=== PATIENT | male | born 1980 | race Caucasian/White ===

== ENCOUNTER 2023-12-06 22:35 | Emergency (ER) | payer OTHER, SELFPAY ==
[2023-12-06 23:28] LABS: % Basophils 0.3 % (0-2); % Eosinophils 0.9 % (0-6); % Immature Granulocytes 0.5 % (0-0.5); % Monocytes 12.6 % (1.7-9.3); % Neutrophils 74.7 % (42.2-75.2); Absolute Eosinophils 0.1 10^3/uL (0-0.7); Absolute Lymphocytes 0.7 10^3/uL (1.2-3.4); Absolute Monocytes 0.8 10^3/uL (0.1-0.6); Absolute Neutrophils 4.9 10^3/uL (1.4-6.5); Hematocrit 36.5 % (39.0-52.0); Hemoglobin 13.1 g/dL (13.0-18.0); Mean Corp Hgb Conc. 35.9 g/dL (33.0-37.0); Mean Corpuscular Hgb 34.1 pg (27.0-31.0); Mean Corpuscular Volume 95.1 fL (80.0-94.0); Mean Platelet Volume 9.3 fL (7.4-10.4); Nucleated Red Blood Cells % 0 % (-); Platelet Count 155 10^3/uL (130-400); Red Blood Cell Count 3.84 10^6/uL (4.70-6.10); White Blood Cell Count 6.5 10^3/uL (4.8-10.8)
[2023-12-06 23:50] LABS: ALT (SGPT) 27 U/L (0-50); AST (SGOT) 49 U/L (17-59); Albumin 3.9 g/dl (3.5-5.0); Alkaline Phosphatase 147 U/L (38-126); Blood Urea Nitrogen 8 mg/dl (9-20); Calcium 9.4 mg/dl (8.4-10.2); Carbon Dioxide 26 mmol/L (22-30); Chloride 104 mmol/L (98-107); Glucose 102 mg/dl (70-99); Potassium 3.3 mmol/L (3.5-5.1); Sodium 137 mmol/L (135-145); Total Bilirubin 1.2 mg/dl (0.2-1.3); Total Protein 6.4 g/dl (6.3-8.2); eGFR > 60.00
[2023-12-06 23:51] LABS: NT-proBNP 242 pg/ml; Troponin I < 0.012 ng/ml
[2023-12-07 00:30] VITALS: BP 141/84
[2023-12-07 00:34] VITALS: BMI 30.4
--- NOTE | 2023-12-07 02:11 | ED.GENMED ---
History of Present Illness
General
Chief Complaint: Back Pain
Source: patient and family
Time Seen by Provider: 12/06/23 23:59
History of Present Illness
History of Present Illness:
This a pleasant 43-year-old male that presents with bilateral upper back pain. This is present for the last few days. Patient has a history of colorectal cancer diagnosed 2 years ago. He is currently at stage IV being treated at [facility]
[place]. Patient states that he has been having intermittent chest pain. He did report a elevation in his blood pressure. Patient has known metastases to his lungs.
Vital signs are stable. Patient not hypoxic
Nursing note reviewed. I agree with nursing documentation up to this point in time.
Home Meds and allergies reviewed.
NUMBER AND COMPLEXITY OF PROBLEMS ADDRESSED AT THE ENCOUNTER
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
� Acute Exacerbation and/or Progression of Chronic Illness: Likely metastatic disease
� Differential Diagnosis includes: Pulmonary embolus, pulmonary infarct, worsening metastases, AAA, thoracic aneurysm
AMOUNT AND/OR COMPLEXITY OF DATA TO BE REVIEWED AND ANALYZED
I performed an independent evaluation of the following and my interpretation is:
EKG: Normal sinus rhythm rate of 97 with normal intervals, left axis deviation. Nonspecific ST and T wave changes noted.
CT angiogram chest
IMPRESSION:
-Technically adequate study -- no evidence of a PE, aortic dissection, or an aortic aneurysm
-No pulmonary consolidation or pleural effusions; dependent areas of probable atelectasis; mild, patchy areas of air trapping/mosaic perfusion
-Mild cardiomegaly
-Several pulmonary nodules measuring up to 7-8 mm such as in the right lower lobe (se 404, im 144) and left lower lobe (im 128)
-Numerous heterogeneously enhancing liver lesions, likely metastases
-Mediport in the right chest wall; mild splenomegaly
Results faxed at 01:37 AM ET. Can call (ext [phone]) if questions.
CT:
X-rays: Chest x-ray negative
Ultrasound:
Laboratory Studies: Troponin is negative. Chest pain began greater than 12 hours ago.
Other:
Review of other/old records: No previous records
Clinical information was obtained by an independent historian:
Prescriptions/Medications Considered but not given:
Further testing considered but not performed:
RISK OF COMPLICATIONS AND/OR MORBIDITY OR MORTALITY OF PATIENT MANAGEMENT
Social determinants of health affecting care: Good Social Support
Discussion with other providers:
Escalation of care including admission/observation vs risk of discharge considered: I spoke with patient regarding his CAT scan and laboratory values. At this point he states he feels well enough to go home. He will follow-up
with his doctors at [facility]. He has no further questions.
CRITICAL CARE NOTE:
Total Time (exclusive of procedures):
Update:
Review of Systems
Review of Systems
Allergies reviewed?: Yes
Other source history: family
All Other Systems: ROS reviewed and negative except as documented in HPI and ROS
Constitutional: Reports no symptoms
EENT: Reports no symptoms
Respiratory: Reports no symptoms
Cardiac: Reports chest pain
ABD/GI: Reports other (Thoracic back pain)
: Reports no symptoms
Musculoskeletal: Reports no symptoms
Skin: Reports no symptoms
Neurological: Reports no symptoms
Endocrine: Reports no symptoms
Hematologic/Lymphatic: Reports no symptoms
Psychiatric: Reports no symptoms
Phy Exam
General Physical Exam
General Presentation: well appearing and mild distress
General age: appears older than age
General Skin: warm and dry
General Habitus: debilitated
General Mental: alert
Cardiovascular Exam
Cardiovascular Exam: regular rate/rhythm and no edema
Pulmonary Exam
Pulmonary Exam: lungs clear, no respiratory distress, no stridor, no cough and other (Port in the anterior chest wall)
Gastrointestinal Exam
Gastrointestinal Exam: normal bowel sounds, non tender and soft
Course
Orders/Labs/Results
Orders:
Orders
12/06/23 22:47
Electrocardiogram (*1) Urgent
Reason for Study: Other
Other Reason for Exam: Respiratory Distress
Cardiac Monitoring- Treatment ONCE
EKG- Treatment ONCE
IV Insert/Care/Rem.- Treatment PRN
CR Chest - 2 Views Urgent
Comment:
Reason For Exam: respiratory distress
O2 Therapy [RESP] Urgent
Titrate/Wean O2 to maintain O2 sat greater than (%): 93
Special Instructions: TO MAINTAIN CONTINUOUS O2 SATS >/= 93%
Pulse Ox/cont/shift [RESP] Urgent
Quantity: 1
Special Instructions: continuous pulse ox
12/06/23 23:12
Complete Blood Count/With Diff Urgent
Comprehensive Metabolic Panel Urgent
NT-proBNP Urgent
Troponin I Urgent
12/07/23 00:47
CT Chest Pe Study Urgent
Comment:
Reason For Exam: colon ca with lung metsm now right chst/bone pain
12/07/23 02:21
Urinalysis Reflex To Culture Urgent
Date Specimen was Collected: 12/07/23
Time Specimen was Collected: 02:19
Abnormal Lab Results
12/06/23
23:12
RBC 3.84 L 10^6/uL
(4.70-6.10)
Hct 36.5 L %
(39.0-52.0)
MCV 95.1 H fL
(80.0-94.0)
MCH 34.1 H pg
(27.0-31.0)
RDW 15.0 H %
(11.5-14.5)
Absolute Lymphs (auto) 0.7 L 10^3/uL
(1.2-3.4)
Absolute Monos (auto) 0.8 H 10^3/uL
(0.1-0.6)
Lymphocytes % 11.0 L %
(20.5-51.1)
Monocytes % 12.6 H %
(1.7-9.3)
Potassium 3.3 L mmol/L
(3.5-5.1)
BUN 8 L mg/dl
(9-20)
Glucose 102 H mg/dl
(70-99)
Alkaline Phosphatase 147 H U/L
(38-126)
12/06/23 23:12
12/06/23 23:12
Vital Signs
Initial and Last Documented VS:
Initial Vital Signs
Temp Pulse Resp Pulse Ox
98.0 F 128 24 96
12/06/23 22:39 12/06/23 22:39 12/06/23 22:39 12/06/23 22:39
Last Documented Vital Signs
Temp Pulse Resp BP Pulse Ox
98.0 F 81 15 141/84 94
12/06/23 22:39 12/07/23 02:00 12/07/23 02:00 12/07/23 00:30 12/07/23 02:00
*Critical Care Note
Total Time (30-74mins, 75-104mins- exclusive of procedures): Not Applicable
ED Attending Note
-
Portions of this chart may have been created with voice recognition software.� Occasional wrong word or��sound alike� substitutions may have occurred due to the inherent limitations of voice recognition software.
Discharge Plan
Departure
Patient Disposition: Home (Routine Discharge)
Date of Disposition: 12/07/23
Time of Disposition: 02:18
Patient with high blood pressure during this ER visit?: Yes
Condition: Good
Discharge Problem:
Back pain, Multiple pulmonary nodules
Instructions: Upper Back Pain (DC), BLOOD PRESSURE
Referrals:
Latanya Cunha PA-C [Family Provider] -
Activity Restrictions/Additional Instructions:
Please follow up with [facility] regarding the pulmonary nodules found on CT scan.
It was a pleasure meeting you and taking part in your care. We hope for your continued healing and wellness.
Please read discharge instructions in their entirety. However, they are for general education and may not describe your exact diagnosis at discharge. Information on your ER visit and medical conditions were discussed with you along with appropriate
follow up information...
If indicated, please take your medications as instructed and indicated on discharge paperwork.
Please schedule a follow up appointment as directed. Call to schedule an appointment
Please return to the emergency department with ANY change in, persisting, or worsening of symptoms. If any of your symptoms do not improve, or persist, or become more severe within 6-12 hours, please return to the emergency department for further
care.
Please return to the emergency department if you develop a headache, neck pain/stiffness, fever greater than 100.4F, chest pain, shortness of breath, persistent nausea, vomiting, slurred speech, difficulty walking, numbness/tingling, weakness, signs
of infection or any other symptoms that are worrisome to you.
If you have any questions or concerns please do not hesitate to call the Hospital at or E-mail me directly at [email or web address]
Interventions
Interventions:
*Risk Screen - Suicide Last Done: 12/06/23 22:39
*General Assessment Last Done: 12/06/23 22:39
*Neglect/Abuse Screening Last Done: 12/06/23 22:39
ED- Fall Risk Assessment Last Done: 12/06/23 22:39
*ED COVID-19 Vaccine History Last Done: 12/06/23 22:39
*Nursing Disposition Last Done: 12/07/23 03:09
ED-Musculoskeletal Assessment Last Done: 12/07/23 00:35
Discharge Date and Time
Discharge Date/Time: 12/07/23 03:11
Print Language: ARMENIAN
[2023-12-07 02:30] LABS: Urine Albumin Negative (Neg - Trace); Urine Bilirubin Negative (Negative); Urine Character Clear (Clear); Urine Color Yellow; Urine Glucose Negative (Negative); Urine Ketone Negative (Negative); Urine Leukocyte Negative (Negative); Urine Nitrite Negative (Negative); Urine Occult Blood Negative (Negative); Urine Urobilinogen Negative (Neg - 1+); Urine pH 6.5 (5.0-9.0)
--- NOTE | 2023-12-07 03:11 | VATNOTE ---
Patient's port was flushed with heparin and deaccessed per protocol as patient is discharged.
== END 2023-12-07 03:11 | disposition home or self-care (01) ==
LOC: EMR 22:35
PROVIDERS: Emergency Medicine; EMERGENCY PHYSICIAN Student in an Organized Health Care Education/Training Program; FAMILY PHYSICIAN Physician Assistant
DX: M54.6 Pain in thoracic spine (principal); R07.89 Other chest pain; R03.0 Elevated blood-pressure reading, without diagnosis of hypertension; C19 Malignant neoplasm of rectosigmoid junction; C78.00 Secondary malignant neoplasm of unspecified lung; I51.7 Cardiomegaly; K76.9 Liver disease, unspecified; R16.1 Splenomegaly, not elsewhere classified; M89.8X9 Other specified disorders of bone, unspecified site; R91.8 Other nonspecific abnormal finding of lung field
CPT/HCPCS: 99285; 71046; 71275; 80053; 81003; 83880; 84484; 85025; 93005; Q9967

== ENCOUNTER 2023-12-28 09:59 | Emergency (ER) | payer SELFPAY ==
[2023-12-28 10:04] VITALS: BP 149/105
--- NOTE | 2023-12-28 10:15 | ED.GENMED ---
History of Present Illness
General
Chief Complaint: Blood Pressure Problem
Source: patient
Exam Limitations: none
Time Seen by Provider: 12/28/23 10:13
Nursing documentation reviewed up to this point in time: agreed with
History of Present Illness
History of Present Illness:
43-year-old male with history of H TN, colorectal cancer with mets to the liver and lung treated at [facility]. was sitting in class 9:15 a.m. at [facility] and felt lightheaded, senior formulation scientist sent him to medical, had BP taken and told it
was high 140/105 and he sent here for evaluation.
Pt ate breakfast, has had intermittent lightheadedness past month due to fluctuating high BP. Has been on Lisinopril 40 mg daily, saw PCP one week ago and Amlodipine 2.5 mg daily was added
Pt denies headache, CP, weakness in extremities.
Pt started Irinotecan chemotherapy at [facility] on 12/22, one dose so far. Avastin DC'd a month ago due to side effects of HTN, lightheadedness
Finished Immunotherapy 2 months ago.
Meds:
Lisinopril 40 mg OD
Amlodipine 2.5 mg OD started on week ago
Irinotecan chemotherapy
Past History
Past History
ED Past Medical History: Cancer (colorectal with mets to lungs and liver.) and HTN
Review of Systems
Review of Systems
Allergies reviewed?: Yes
All Other Systems: ROS reviewed and negative except as documented in HPI and ROS
Constitutional: Denies fever or chills
EENT: Denies sore throat
Respiratory: Denies trouble breathing
Cardiac: Denies chest pain
ABD/GI: Denies abdominal pain, nausea, vomiting or diarrhea
: Denies dysuria, frequency or difficulty voiding
Musculoskeletal: Denies edema
Skin: Reports other (generalized rash from previous chemo)
Neurological: Reports other ('brain fog', tingling in extremities from chemo)
Phy Exam
Physical Exam
Physical Exam:
GENERAL: No acute distress. A&Ox3.
CONSTITUTIONAL: Afebrile.
EYES: PERRL, conjunctivae normal
Neck: Supple
ENMT: moist mucus membranes, Pharynx nl
RESPIRATORY: Regular respirations, nonlabored, lungs clear.
CARDIOVASCULAR: Regular rate and rhythm, no murmurs, no rubs.
GI: Soft, nontender, normal BS
MUSCULOSKELETAL: Moves with ease. Well perfused.
SKIN: Mediport left chest wall. Generalized flat brownish patches over skin, underlying skin normal
PSYCH: Normal mood and affect. Well kept, interactive and appropriate
NEUROLOGIC: Awake, alert and oriented. No focal neurological deficits
Course
Orders/Labs/Results
Orders:
Orders
12/28/23 10:31
0.9% Sodium Chloride 1000 ml [Nss] 1,000 ml IV BOLUS
12/28/23 11:11
Complete Blood Count/With Diff Urgent
Comprehensive Metabolic Panel Urgent
12/28/23 11:30
Heparin Pf [Heparin Lock Flush] 500 unit IV PER PROTOCOL
12/28/23 12:37
Amlodipine [Norvasc] 2.5 mg PO NOW STA
Abnormal Lab Results
12/28/23
11:11
WBC 3.5 L 10^3/uL
(4.8-10.8)
RBC 3.60 L 10^6/uL
(4.70-6.10)
Hgb 12.6 L g/dL
(13.0-18.0)
Hct 34.0 L %
(39.0-52.0)
MCV 94.4 H fL
(80.0-94.0)
MCH 35.0 H pg
(27.0-31.0)
MCHC 37.1 H g/dL
(33.0-37.0)
Absolute Lymphs (auto) 0.5 L 10^3/uL
(1.2-3.4)
Neutrophils % 79.1 H %
(42.2-75.2)
Lymphocytes % 13.8 L %
(20.5-51.1)
Glucose 101 H mg/dl
(70-99)
Total Bilirubin 1.8 H mg/dl
(0.2-1.3)
AST 60 H U/L
(17-59)
Alkaline Phosphatase 145 H U/L
(38-126)
12/28/23 11:11
12/28/23 11:11
Vital Signs
Initial and Last Documented VS:
Initial Vital Signs
Pulse Resp BP Pulse Ox
104 16 149/105 98
12/28/23 10:04 12/28/23 10:04 12/28/23 10:04 12/28/23 10:04
Last Documented Vital Signs
Pulse Resp BP Pulse Ox
94 22 141/96 93
12/28/23 12:52 12/28/23 12:52 12/28/23 12:52 12/28/23 12:52
MDM/Problems Addressed
Differential Diagnosis Includes:
hypertension, hypertensive urgency, hypertensive emergency.
MDM/Problems Addressed:
43-year-old male with history of H TN, colorectal cancer with mets to the liver and lung treated at [facility]. was sitting in class 9:15 a.m. at [facility] and felt lightheaded, senior formulation scientist sent him to medical, had BP taken and told it
was high 140/105 and he sent here for evaluation.
Pt ate breakfast, has had intermittent lightheadedness past month due to fluctuating high BP. Has been on Lisinopril 40 mg daily, saw PCP one week ago and Amlodipine ?mg daily was added
Pt denies headache, CP, weakness in extremities.
Pt started Irinotecan chemotherapy at [facility] on 12/22, one dose so far. Avastin DC'd a month ago due to side effects of HTN, lightheadedness
Finished Immunotherapy 2 months ago.
12:30 PM:
CBC with no clinically significant abnormality
CMP: Normal kidney function. Pt states liver functions are typically higher than normal
Blood pressure remains elevated at 144/101
Patient has no systemic symptoms indicative of a stroke, heart attack, labs are unremarkable, he did take his amlodipine this morning so I will give him another amlodipine 2.5 mg now and have him increase his daily dose from 2.5 to 5 mg daily. He
has a blood pressure cuff at home he can check his pressure, he will contact his PCP tomorrow about the changes and any further instruction.
*Critical Care Note
Total Time (30-74mins, 75-104mins- exclusive of procedures): Not Applicable
ED Attending Note
-
Portions of this chart may have been created with voice recognition software.� Occasional wrong word or��sound alike� substitutions may have occurred due to the inherent limitations of voice recognition software.
Discharge Plan
Departure
Patient Disposition: Home (Routine Discharge)
Date of Disposition: 12/28/23
Time of Disposition: 12:43
Patient with high blood pressure during this ER visit?: Yes
Condition: Fair
Discharge Problem:
Hypertension
Instructions: High Blood Pressure (DC)
Referrals:
Latanya Cunha PA-C [Family Provider] - Tomorrow
Activity Restrictions/Additional Instructions:
As we discussed, starting tomorrow, increase your amlodipine to 5 mg daily. Call your family doctor tomorrow and inform of today's visit and medication changes.
Interventions
Interventions:
*Risk Screen - Suicide Last Done: 12/28/23 11:27
*General Assessment Last Done: 12/28/23 13:30
*Neglect/Abuse Screening Last Done: 12/28/23 11:27
ED- Fall Risk Assessment Last Done: 12/28/23 13:30
*ED COVID-19 Vaccine History Last Done: 12/28/23 13:30
*Nursing Disposition Last Done: 12/28/23 13:30
ED- Cardiac Assessment Last Done: 12/28/23 11:28
ED- Neurological Assessment Last Done: 12/28/23 11:28
ED- Pulmonary Assessment Last Done: 12/28/23 11:28
Discharge Date and Time
Discharge Date/Time: 12/28/23 13:30
Print Language: [place] LUCIAN
[2023-12-28] MEDS: NSS 1000 IV (11:11)
[2023-12-28 11:22] LABS: % Basophils 0.3 % (0-2); % Eosinophils 3.7 % (0-6); % Immature Granulocytes 0.3 % (0-0.5); % Lymphocytes 13.8 % (20.5-51.1); % Monocytes 2.8 % (1.7-9.3); % Neutrophils 79.1 % (42.2-75.2); Absolute Eosinophils 0.1 10^3/uL (0-0.7); Absolute Lymphocytes 0.5 10^3/uL (1.2-3.4); Absolute Monocytes 0.1 10^3/uL (0.1-0.6); Absolute Neutrophils 2.8 10^3/uL (1.4-6.5); Hemoglobin 12.6 g/dL (13.0-18.0); Mean Corp Hgb Conc. 37.1 g/dL (33.0-37.0); Mean Corpuscular Volume 94.4 fL (80.0-94.0); Mean Platelet Volume 9.3 fL (7.4-10.4); Nucleated Red Blood Cells % 0 % (-); Platelet Count 176 10^3/uL (130-400); Red Cell Dist. Width 14.4 % (11.5-14.5); White Blood Cell Count 3.5 10^3/uL (4.8-10.8)
[2023-12-28 11:47] LABS: ALT (SGPT) 38 U/L (0-50); AST (SGOT) 60 U/L (17-59); Albumin 4.2 g/dl (3.5-5.0); Alkaline Phosphatase 145 U/L (38-126); Blood Urea Nitrogen 11 mg/dl (9-20); Calcium 10.2 mg/dl (8.4-10.2); Carbon Dioxide 25 mmol/L (22-30); Chloride 104 mmol/L (98-107); Glucose 101 mg/dl (70-99); Potassium 3.6 mmol/L (3.5-5.1); Sodium 136 mmol/L (135-145); Total Bilirubin 1.8 mg/dl (0.2-1.3); Total Protein 6.7 g/dl (6.3-8.2); eGFR > 60.00
[2023-12-28 12:00] VITALS: BP 124/71
[2023-12-28 12:03] VITALS: BP 144/101
[2023-12-28 12:52] VITALS: BP 141/96
[2023-12-28] MEDS: NORVASC 2.5 MG PO (12:52)
== END 2023-12-28 13:30 | disposition home or self-care (01) ==
LOC: EMR 09:59
PROVIDERS: Registered Nurse; EMERGENCY PHYSICIAN Emergency Medicine; FAMILY PHYSICIAN Physician Assistant
DX: I10 Essential (primary) hypertension (principal); R42 Dizziness and giddiness; C19 Malignant neoplasm of rectosigmoid junction; C78.00 Secondary malignant neoplasm of unspecified lung
CPT/HCPCS: 99282; 96360; 80053; 85025

== ENCOUNTER 2024-04-19 10:30 | Emergency (ER) | payer SELFPAY ==
[2024-04-19 10:32] VITALS: BP 133/90
--- NOTE | 2024-04-19 10:48 | ED.GENMED ---
History of Present Illness
General
Chief Complaint: Musculo-Skeletal Complaint
Time Seen by Provider: 04/19/24 10:47
History of Present Illness
History of Present Illness:
TIME OF INITIAL ENCOUNTER: 10:55 AM
HPI: Patient presents due to left-sided hip pain. He was concerned because he has stage IV colorectal cancer known to [facility]. This feels exactly like the time he was diagnosed with metastatic disease to the spine. He took 10 mg of oxycodone this
morning and then more recently took another 5 mg of oxycodone. His pain has improved. He is scheduled to have chemo tomorrow.
EXAM:
GENERAL: Well appearing in no distress
HEENT: Moist oral mucosa, diffuse facial puffiness noted
CARDIOVASCULAR: No murmurs, normal heart rate, regular rhythm, No chest wall tenderness
PULMONARY: No respiratory distress, breath sounds are clear and equal
ABDOMEN: Soft with no peritoneal signs, no tenderness
NEUROLOGIC: Excellent strength all extremities, no coordination deficits
PSYCHIATRIC: Appropriate mental status, normal insight and judgement
EXTREMITIES: Nontender, no edema, moves all extremities equally
SKIN: Brown macules noted related to prior chemo use primarily to the lower extremities
NUMBER AND COMPLEXITY OF PROBLEMS ADDRESSED AT THE ENCOUNTER
� Chronic conditions affecting care: Stage IV colorectal cancer
� Acute Exacerbation and/or Progression of Chronic Illness: This is an acute problem
� Differential Diagnosis includes: Metastatic disease, hip strain, myalgias
AMOUNT AND/OR COMPLEXITY OF DATA TO BE REVIEWED AND ANALYZED
� I performed an independent evaluation of and my interpretation is:
EKG:
CT: CT imaging also obtained which shows no clear evidence for metastatic disease
X-rays: I personally reviewed x-ray of the left hip and agree with radiologist interpretation there is narrowing evident metastatic disease
Laboratory Studies:
Other:
� Review of other/old records: I reviewed records, the patient was seen here in December of this year related to high blood pressure
� Clinical information was obtained by an independent historian: None needed
� Prescriptions/Medications Considered but not given:
� Further testing considered but not performed:
RISK OF COMPLICATIONS AND/OR MORBIDITY OR MORTALITY OF PATIENT MANAGEMENT
� Social determinants of health affecting care: Lives at home, cancer care at [facility]
� Discussion with other providers:
� Escalation of care including admission/observation vs risk of discharge considered: Plain films unremarkable, will obtain CT imaging for further evaluation.
ANY OTHER UPDATES:
12 PM: I reassessed patient. There is no evidence for metastatic disease currently. He will follow-up with his doctors at [facility]. Possible trochanteric bursitis given the location of the pain however radiologist did not notice any clear signs for
bursitis either. Will give additional narcotic analgesia.
Past History
Past History
ED Past Medical History: Cancer (colorectal with mets to lungs and liver.) and HTN
Phy Exam
Physical Exam
Physical Exam:
See HPI
Course
Orders/Labs/Results
Orders:
Orders
04/19/24 10:35
Hip, Left 2-3 Views [CR Hip - LT w/wo Pel 2-3 Vw*] Urgent
Comment: hx bowel ca with mets to liver
Reason For Exam: left hip pain worried he may have mets to the bone
Include a pelvis x-ray?: No
04/19/24 10:[address] Pelvis W/o Iv Contrast Urgent
Comment:
Reason For Exam: metastatic colorectal CA; pain L greater troch
Vital Signs
Initial and Last Documented VS:
Initial Vital Signs
Temp Pulse Resp BP Pulse Ox
36.8 C 84 16 133/90 98
04/19/24 10:32 04/19/24 10:32 04/19/24 10:32 04/19/24 10:32 04/19/24 10:32
Last Documented Vital Signs
Temp Pulse Resp BP Pulse Ox
36.8 C 84 16 132/93 100
04/19/24 10:32 04/19/24 10:32 04/19/24 10:32 04/19/24 11:00 04/19/24 11:00
*Critical Care Note
Total Time (30-74mins, 75-104mins- exclusive of procedures): Not Applicable
ED Attending Note
-
Portions of this chart may have been created with voice recognition software.� Occasional wrong word or��sound alike� substitutions may have occurred due to the inherent limitations of voice recognition software.
Discharge Plan
Departure
Patient Disposition: Home (Routine Discharge)
Date of Disposition: 04/19/24
Time of Disposition: 11:58
Patient with high blood pressure during this ER visit?: Yes
Discharge Problem:
Acute hip pain
Instructions: Hip Pain ED, BLOOD PRESSURE
Prescriptions:
New
oxycodone 5 mg tablet
5 - 10 mg PO Q8H PRN (Reason: Pain) Qty: 14 0RF
Referrals:
Latanya Cunha PA-C [Family Provider] -
Activity Restrictions/Additional Instructions:
We did an x-ray initially and then a CAT scan of the pelvis�they were read by a radiologist which sees no sign of metastatic disease. It is possible that your pain could be related to bursitis. Consider also taking nonnarcotic anti-inflammatory
medicine such as Motrin. Follow-up with your doctors at [facility]. I did send a prescription for additional narcotic analgesia to your pharmacy.
Interventions
Interventions:
*Risk Screen - Suicide Last Done: 04/19/24 10:32
*General Assessment Last Done: 04/19/24 11:00
*Neglect/Abuse Screening Last Done: 04/19/24 10:32
ED- Fall Risk Assessment Last Done: 04/19/24 11:00
*ED COVID-19 Vaccine History Last Done: 04/19/24 11:00
ED-Musculoskeletal Assessment Last Done: 04/19/24 11:00
Discharge Date and Time
Print Language: [email or web address]
[2024-04-19 11:00] VITALS: BP 132/93
[2024-04-19 12:00] VITALS: BP 122/67
== END 2024-04-19 12:42 | disposition home or self-care (01) ==
LOC: EMR 10:30
PROVIDERS: EMERGENCY PHYSICIAN Emergency Medicine; FAMILY PHYSICIAN Physician Assistant
DX: M25.552 Pain in left hip (principal); I10 Essential (primary) hypertension; C19 Malignant neoplasm of rectosigmoid junction; C78.00 Secondary malignant neoplasm of unspecified lung; C78.7 Secondary malignant neoplasm of liver and intrahepatic bile duct; Z92.3 Personal history of irradiation
CPT/HCPCS: 99284; 72192; 73502

== ENCOUNTER 2024-10-02 04:02 | Inpatient (IN) | payer OTHER, SELFPAY ==
[2024-10-01 21:01] VITALS: BP 152/97
[2024-10-01 21:38] VITALS: BP 130/84
[2024-10-01 21:39] VITALS: BMI 27.4
--- NOTE | 2024-10-01 21:42 | ED.GENMED ---
History of Present Illness
General
Chief Complaint: Cancer Problem
Source: patient
Exam Limitations: none
Time Seen by Provider: 10/01/24 21:24
History of Present Illness
History of Present Illness:
43yoM with a history of metastatic colon cancer (follows with Dr. Villanueva, [facility]; scheduled to start a new chemotherapy in 2 weeks) presenting for evaluation of uncontrolled pain. Patient has known bony mets and last CT scan 09/08/2024
showed worsening tumor burden with a T5 pathologic fracture. Patient chronically takes oxycodone 5 mg every 6 as needed. He has had worsening pain over the past day or two. He has pain throughout his spine with new pain in his left flank. He
also reports having a fever of 102.5 earlier today. He called and spoke with his oncology team and he was told to go to the ED for evaluation.
Past History
Past History
ED Past Medical History: Cancer (colorectal with mets to lungs and liver.) and HTN
Phy Exam
Physical Exam
Physical Exam:
Chronically ill appearing, no apparent distress
General Physical Exam
General Presentation: no apparent distress
General Skin: warm and dry
General Habitus: normal
General Mental: alert
ENT Exam
ENT Exam: normocephalic
Cardiovascular Exam
Cardiovascular Exam: regular rate/rhythm
Pulmonary Exam
Pulmonary Exam: lungs clear, no respiratory distress, no rales, no crackles and no rhonchi
Gastrointestinal Exam
Gastrointestinal Exam: non tender, soft and non distended
Neurological Exam
Neurological Exam: alert and no motor deficits (5/5 strength in all extremities)
[place] Com[place] Scale
Eye Opening: Spontaneous
Verbal Response: Oriented
Motor Response: Obeys Commands
GCS Total Score: 15
Musculoskeletal Exam
Musculoskeletal Exam: other (+L flank tenderness)
Skin Exam
Skin Exam: normal color and warm/dry
Psychiatric Exam
Psychiatric Exam: normal mood/affect
Course
Orders/Labs/Results
Orders:
Orders
10/01/24 21:39
HYDROmorphone [Dilaudid] 1 mg IV NOW STA
10/01/24 21:50
COVID-19 Antigen Urgent
Source: Nasal Swab
Complete Blood Count/With Diff Urgent
Comprehensive Metabolic Panel Urgent
Lactate Level [Lactic Acid] Urgent
Blood Culture Q30M
JAZMIN Source: Blood/Venous
Specimen Description:
Influenza A+B Rapid Molecular Urgent
JAZMIN Source: Nasal Swab
Specimen Description:
10/01/24 22:07
Blood Culture Q30M
JAZMIN Source: Blood/Venous
Specimen Description:
10/01/24 22:30
Urinalysis Reflex To Culture Urgent
Date Specimen was Collected: 10/01/24
Time Specimen was Collected: 22:27
10/01/24 22:33
Potassium Chloride [KCl] 20 meq PO NOW STA
10/02/24 00:00
CT Cervical Spine W/o Iv Contr Urgent
Reason For Exam: neck pain, hx of metastatic cancer
CT Pe/abd/pel W Urgent
Reason For Exam: L flank pain, SOB, hx of metastatic colon cancer
10/02/24 01:47
Cefepime HCl [Maxipime] 2,000 mg IV NOW STA
10/02/24 02:02
Sterile Water [Sterile Water For Injection] 20 ml .ROUTE .STK-MED
10/02/24 03:28
Admit/Transfer Patient As Directed
Co-Sign Provider:
Level of Care: Inpatient admission
Assign to:: Medical/Surgical
Physician / Group: Miesha
Diagnosis: fever of unknown source
Reason for Hospitalization: fever, metastatic colon ca
Expected length of stay greater than two midnights?: Yes
ELOS- Estimated Length of Stay in days: 2
I certify the patient meets the requirements for IP care: Yes
PRN Pain Medication Management As Directed
May give lesser potent ordered pain med per pt: Yes
preference::
Protocol:: Medication orders for pain may be administered in a
manner that supports deferring to patient preference
when the pt is:
- Requesting an ordered lesser potent pain medication.
Least to most potent pain medications are defined
as: acetaminophen < NSAID < tramadol < opioids
(morphine, oxycodone, hydromorphone).
- Requesting a lesser dose of the same medication IF
ORDERED.
- Requesting a less intrusive route of administration
if both routes are prescribed by the provider (PO <
IV).
10/02/24 03:29
Code Status As Directed
Resuscitation Status: Full Code
10/02/24 04:14
Acetaminophen [Tylenol] 650 mg PO Q4HPRN PRN
Bisacodyl [Dulcolax] 10 mg RECTAL [id number] PRN
Docusate W/Senna [Senokot-S] 1 tablet PO BIDPRN PRN
HYDROmorphone [Dilaudid] 1 mg IV Q4HPRN PRN
Ondansetron Injectable [Zofran] 4 mg IV Q6HPRN PRN
Oxycodone [Roxicodone] 10 mg PO Q4HPRN PRN
Polyethylene Glycol Powder [Miralax] 17 grams PO DAILYPRN PRN
10/02/24 04:14
Consult Notification Routine
Specialty to Notify: Infectious Disease
Date consulting provider notified: 10/02/24
Time consulting provider notified: 07:40
Notified:: Provider
Comment: Dr. Coyne notified via tiger text
INFECTIOUS DISEASE CONSULT Routine
Consulting Provider: Kiarra Coyne
Was physician already notified: No
Reason for consult: metastatic colon ca, here with fever of unknown source
Activity As Directed
Activity Level: With Assistance
Neurological Checks As Directed
Frequency: q8h
Vital Signs As Directed
Frequency: Per unit guidelines
Pulse Ox/spot Check [RESP] Routine
Quantity: 1
DX Deep Vein Thrombosis Video Routine
10/02/24 05:06
Basic Metabolic Panel IN AM
CRP [C-Reactive Protein] IN AM
Complete Blood Count/No Diff IN AM
ESR [Erythrocyte Sed Rate] IN AM
Magnesium IN AM
10/02/24 Breakfast
Regular
At Your Request: Full Participation
10/02/24 08:00
Lisinopril [Zestril] 40 mg PO DAILY
10/02/24 13:30
Cefepime HCl [Maxipime] 2,000 mg IV Q12H
10/02/24 18:00
Enoxaparin Sodium [Lovenox] 40 mg SC QPM
Abnormal Lab Results
10/01/24
21:50
RBC 3.05 L 10^6/uL
(4.70-6.10)
Hgb 9.9 L g/dL
(13.0-18.0)
Hct 28.9 L %
(39.0-52.0)
MCV 94.8 H fL
(80.0-94.0)
MCH 32.5 H pg
(27.0-31.0)
RDW 15.5 H %
(11.5-14.5)
MPV 10.7 H fL
(7.4-10.4)
Abs Immat Gran (auto) 0.1 H 10^3/uL
(0-0.05)
Absolute Lymphs (auto) 0.4 L 10^3/uL
(1.2-3.4)
Absolute Monos (auto) 1.3 H 10^3/uL
(0.1-0.6)
Immature Gran % 0.6 H %
(0-0.5)
Neutrophils % 77.5 H %
(42.2-75.2)
Lymphocytes % 5.1 L %
(20.5-51.1)
Monocytes % 16.1 H %
(1.7-9.3)
Sodium 133 L mmol/L
(135-145)
Potassium 3.3 L mmol/L
(3.5-5.1)
BUN 8 L mg/dl
(9-20)
Creatinine 0.6 L mg/dL
(0.7-1.3)
Glucose 119 H mg/dl
(70-99)
Calcium 8.2 L mg/dl
(8.4-10.2)
Total Bilirubin 2.1 H mg/dl
(0.2-1.3)
AST 102 H U/L
(17-59)
Alkaline Phosphatase 301 H U/L
(38-126)
Total Protein 5.6 L g/dl
(6.3-8.2)
Albumin 2.9 L g/dl
(3.5-5.0)
10/01/24 21:50
10/01/24 21:50
Vital Signs
Initial and Last Documented VS:
Initial Vital Signs
Temp Pulse Resp BP Pulse Ox
99.6 F 103 20 152/97 97
10/01/24 21:01 10/01/24 21:01 10/01/24 21:01 10/01/24 21:01 10/01/24 21:01
Last Documented Vital Signs
Temp Pulse Resp BP Pulse Ox
98.2 F 95 18 125/82 100
10/02/24 08:18 10/02/24 08:18 10/02/24 08:18 10/02/24 08:18 10/02/24 08:18
MDM/Problems Addressed
Differential Diagnosis Includes:
43yoM here with uncontrolled pain. Hx of metastatic colon cancer with known bony mets. C/o diffuse back pain and new L flank pain. Also spiked a fever earlier today and is febrile to 101.1 here. He is chronically ill appearing in no distress.
Differential diagnosis includes but is not limited to: cancer related pain, pathologic fracture, PE, pneumonia, UTI, bacteremia
Initial ED plan: Check septic workup including blood cultures, UA, COVID/flu swab. He was told by his oncology team to get an MRI while in the ED although he denies any new neurologic symptoms and has 5/5 strength in all extremities. No emergent
need for MRI. Will check CT cervical spine and CT CAP. IV Dilaudid for pain.
*Critical Care Note
Total Time (30-74mins, 75-104mins- exclusive of procedures): Not Applicable
Update Note
Update Note:
COVID/flu negative. UA bland without signs of infection. White count and lactate ordered. Imaging shows worsening metastatic disease with pathologic fractures of T5, T7, and T10. IV cefepime ordered and patient admitted for further management.
ED Attending Note
-
Portions of this chart may have been created with voice recognition software.� Occasional wrong word or��sound alike� substitutions may have occurred due to the inherent limitations of voice recognition software.
Discharge Plan
Departure
Patient Disposition: Admit
Date of Disposition: 10/02/24
Time of Disposition: 02:03
Presentation/result/management discussed w/ accepting MD/DO: Hospitalist
Discharge Problem:
Fever, Cancer-related pain, Pathologic compression fracture of thoracic vertebra
Interventions
Interventions:
*Risk Screen - Suicide Last Done: 10/01/24 21:01
*General Assessment Last Done: 10/01/24 21:01
*Neglect/Abuse Screening Last Done: 10/01/24 21:01
*ED- Fall Risk Assessment Last Done: 10/01/24 21:40
*ED COVID-19 Vaccine History Last Done: 10/01/24 21:40
[2024-10-01 22:00] VITALS: BP 127/90
[2024-10-01] MEDS: DILAUDID 1 MG IV (22:09)
[2024-10-01 22:12] LABS: % Basophils 0.3 % (0-2); % Eosinophils 0.4 % (0-6); % Immature Granulocytes 0.6 % (0-0.5); % Lymphocytes 5.1 % (20.5-51.1); % Monocytes 16.1 % (1.7-9.3); % Neutrophils 77.5 % (42.2-75.2); Absolute Immature Granulocytes 0.1 10^3/uL (0-0.05); Absolute Lymphocytes 0.4 10^3/uL (1.2-3.4); Absolute Monocytes 1.3 10^3/uL (0.1-0.6); Absolute Neutrophils 6.2 10^3/uL (1.4-6.5); Hematocrit 28.9 % (39.0-52.0); Hemoglobin 9.9 g/dL (13.0-18.0); Mean Corp Hgb Conc. 34.3 g/dL (33.0-37.0); Mean Corpuscular Hgb 32.5 pg (27.0-31.0); Mean Corpuscular Volume 94.8 fL (80.0-94.0); Mean Platelet Volume 10.7 fL (7.4-10.4); Nucleated Red Blood Cells % 0 % (-); Platelet Count 148 10^3/uL (130-400); Red Blood Cell Count 3.05 10^6/uL (4.70-6.10); Red Cell Dist. Width 15.5 % (11.5-14.5)
[2024-10-01 22:22] LABS: Lactic Acid 1.3 mmol/L (0.7-2.0)
[2024-10-01 22:27] LABS: ALT (SGPT) 32 U/L (0-50); AST (SGOT) 102 U/L (17-59); Albumin 2.9 g/dl (3.5-5.0); Alkaline Phosphatase 301 U/L (38-126); Blood Urea Nitrogen 8 mg/dl (9-20); Calcium 8.2 mg/dl (8.4-10.2); Carbon Dioxide 26 mmol/L (22-30); Chloride 102 mmol/L (98-107); Estimated Creatinine Clearance > 125 ml/min; Glucose 119 mg/dl (70-99); Potassium 3.3 mmol/L (3.5-5.1); Sodium 133 mmol/L (135-145); Total Bilirubin 2.1 mg/dl (0.2-1.3); Total Protein 5.6 g/dl (6.3-8.2); eGFR > 60.00
[2024-10-01 22:28] LABS: COVID-19 Antigen Negative (Negative)
[2024-10-01 22:44] LABS: Urine Albumin Negative (Neg - Trace); Urine Bilirubin Negative (Negative); Urine Character Clear (Clear); Urine Color Yellow; Urine Glucose Negative (Negative); Urine Ketone Negative (Negative); Urine Leukocyte Negative (Negative); Urine Nitrite Negative (Negative); Urine Occult Blood Negative (Negative); Urine Urobilinogen 1+ (Neg - 1+)
[2024-10-01] MEDS: KCL 20 MEQ PO (22:51)
[2024-10-01 23:00] VITALS: BP 125/89
[2024-10-02] VITALS: BP 124/88
[2024-10-02 01:12] VITALS: BP 128/84
[2024-10-02] MEDS: MAXIPIME 2000 MG IV (02:05)
--- NOTE | 2024-10-02 03:12 | HPS.HSE ---
Family Physician
-
Family Physician: NOT KNOW UNKNOWN - PT DOES
Chief Complaint
-
Back pain, fever
History of Present Illness
This is a 43-year-old with past medical history of hypertension, metastatic colon cancer diagnosed 3 years ago who presents to the emergency department with low back pain and a fever.
In terms of the fever patient stated that 1 week ago he had a fever at night for 3 days straight and then that resolved. The fever was not associated with any other symptoms. He reported this to his oncologist who stated that this she will return
to the emergency department if the fever recurs. He reported that he had a fever of up to 102 at home prior to coming to the emergency department.
In terms of back pain who reports he went on a chronic oxycodone he developed uncontrolled back pain and a new left-sided flank pain. He denies any weakness in the lower extremities. He denies any bladder or bowel dysfunction. He has chronic
intermittent constipation and diarrhea.
Generally patient denies any localizing symptoms of his fevers including no cough wheezing or shortness of breath. He denies any nausea or vomiting. He denies any abdominal pain. He denies dysuria, urgency or frequency. He denies any new rash.
He denies any joint swelling redness or ache. Patient reports intermittent chronic headaches and no recent changes. He denies any neck stiffness.
In the emergency department he was febrile to 101.1, blood pressure was stable at 128/80 with a pulse of 78 and he was satting 98% on room air. CBC shows a white count of 8, absolute neutrophil count of greater than 6000, hemoglobin of 9.9,
platelet count of 148. Electrolytes were stable with sodium of 131 potassium 3.3. BUN and creatinine were completely normal. Glucose was normal. His T. bili was similar to prior at 2.1,. Was also similar to prior 301. AST was slightly
increased to 102.
His UA was negative. COVID was negative. Flu was negative. CT of the chest abdomen pelvis revealed the following:
There was no evidence of PE on the CT of the chest.
Mild to moderate cardiomegaly. Trace pericardial effusion.
He had increased size of previously seen bilateral pulmonary nodules
There were several new bone lesions consistent with metastasis, particularly large sclerotic lesion of the anterior right third rib with large pleural soft tissue component.
There was associated new pathologic compression fracture deformities of T5 T7 and T10. There is also pathologic central superior endplate depression at T11. The T10 shows a suspected small soft tissue component in the anterior epidural space
causing at least mild spinal canal stenosis.
The abdomen shows numerous liver lesions which were increased in size and number compatible with metastatic disease. There was small volume ascites. Marked splenomegaly. Edematous gallbladder wall thickening favored to be related to liver disease
and fluid status and less likely cholecystitis.
Mild rectal wall thickening and mucosal hyperenhancement.
Nonobstructive renal calculi.
Medical History
Past Medical History
Past Medical History: Reports Cancer (Metastatic colon cancer) and HTN
Past Surgical History: Reports Tonsilectomy
Social History
Tobacco: Non-smoker
Alcohol: None
Drug: None
Personal:
Living: With Family
Family History
Family History: Not pertinent
Allergies / Home Medications
Allergies reflects when Allergies were last updated in [facility].
Home Medications with original date entered in [facility]
Allergy/Medication List:
Allergies
Allergy/AdvReac Type Severity Reaction Status Date / Time
No Known Allergies Allergy Verified 04/19/24 10:34
Home Medications
lisinopril 40 mg tablet 40 mg PO DAILY 10/01/24
oxycodone 5 mg tablet 20 mg PO Q8H Pain 10/01/24
Review of Systems
-
History Source: Patient
Constitutional: Reports Fever
EENT: Reports No Symptoms
Respiratory: Reports No Symptoms
Cardiac: Reports No Symptoms
Abdomen/GI: Reports Diarrhea and Constipated
: Reports Flank Pain
Musculoskeletal: Reports Other (back pain)
Skin: Reports No Symptoms
Neurological: Reports No Symptoms
Endocrine: Reports No Symptoms
Hematologic/Lymphatic: Reports No Symptoms
Psych: Reports No Symptoms
Physical Exam
Vital Signs
Vital Signs
Temp Pulse Resp BP Pulse Ox
101.1 F H 78 12 128/84 98
10/01/24 21:56 10/02/24 01:13 10/02/24 01:13 10/02/24 01:12 10/02/24 01:00
Physical Exam
General: Well Developed, No Apparent Distress and Comfortable
HEENT: NormoCephalic, Anicteric and Moist mucous membranes
Respiratory: Clear
Cardiac: S1/S2 and Regular Rhythm
Breast: Deferred by me
GI: Soft, Non Tender, Non Distended and Normal Bowel Sounds
Rectal: Deferred by Provider
Genito-urinary: Deferred by me
Musculoskeletal: No Clubbing, No Cyanosis and No Edema
Skin: Warm
Neuro: AO x 3 and Nonfocal/grossly intact
Hematologic/Lymphatic: No Lymphadenopathy
Psych: Calm
Laboratory Results
-
10/01/24 21:50
10/01/24 21:50
Laboratory Results
Lactic Acid 1.3 mmol/L (0.7-2.0) 10/01/24 21:50
Total Bilirubin 2.1 mg/dl (0.2-1.3) H 10/01/24 21:50
AST 102 U/L (17-59) H 10/01/24 21:50
ALT 32 U/L (0-50) 10/01/24 21:50
Alkaline Phosphatase 301 U/L (38-126) H 10/01/24 21:50
Data Reviewed
-
CT Scan: Report Reviewed by me
Lab Data: Labs Reviewed by me
Impression/Plan
-
IMPRESSION:
43-year-old with metastatic colon cancer (currently on oxaliplatin, last dose 3 weeks ago) with mets to lungs liver bone who presents to the emergency department with back pain and fever. He also has some flank pain. Investigation in the ED shows
no source of fever. Imaging shows progression of metastases with pathologic compression fractures from T5 T7 and T10 and suspicion of small soft tissue component in 2009 in the anterior epidural space causing at least mild spinal canal stenosis.
This likely explains the back pain. The etiology of his fever remains unclear. Despite the findings patient has no neurological deficits.
PLAN:
1. 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 Small soft tissue component at T10. No neurological deficits.
- admit to med/surg
- pain control with patients oral oxycodone in addition to IV pain medications for now
- neurochecks
- consider radiation onc consultation
2. Fever - No neutropenia. No obvious source on history, exams, imaging or labs. ?Cholecystitis but benign exam and CT is equivocal (wall thickening but no stones noted)
- blood cultures sent
- ok for cefepime x 48 hours pending cultures
- no murmurs, check esr/crp
- mrsa swab
- ID consultation
3.HTN
- continue lisinopril
DVT PPX - lovenox sq
Code status - Full Code
[2024-10-02 06:42] LABS: Hematocrit 27.2 % (39.0-52.0); Hemoglobin 9.2 g/dL (13.0-18.0); Mean Corp Hgb Conc. 33.8 g/dL (33.0-37.0); Mean Corpuscular Hgb 32.7 pg (27.0-31.0); Mean Corpuscular Volume 96.8 fL (80.0-94.0); Mean Platelet Volume 10.7 fL (7.4-10.4); Platelet Count 128 10^3/uL (130-400); Red Blood Cell Count 2.81 10^6/uL (4.70-6.10); Red Cell Dist. Width 15.5 % (11.5-14.5); White Blood Cell Count 5.4 10^3/uL (4.8-10.8)
[2024-10-02 06:59] LABS: Blood Urea Nitrogen 8 mg/dl (9-20); Calcium 8.1 mg/dl (8.4-10.2); Carbon Dioxide 30 mmol/L (22-30); Chloride 106 mmol/L (98-107); Estimated Creatinine Clearance > 125 ml/min; Glucose 85 mg/dl (70-99); Potassium 3.8 mmol/L (3.5-5.1); Sodium 139 mmol/L (135-145); eGFR > 60.00
[2024-10-02 07:51] LABS: Erythrocyte Sed Rate 87 mm/hour (0-20)
[2024-10-02] MEDS: DILAUDID 1 MG IV ×2 (08:12→16:04)
[2024-10-02] MEDS: STERILE WATER FOR INJECTION 10 ML IV ×3 (08:16→19:56)
[2024-10-02] MEDS: ZESTRIL 40 MG PO (08:16)
[2024-10-02] MEDS: MAXIPIME 1000 MG IV ×3 (08:17→19:55)
[2024-10-02 08:18] VITALS: BP 125/82
[2024-10-02] MEDS: ROXICODONE 5 MG PO ×2 (11:56→17:22)
--- NOTE | 2024-10-02 12:29 | CON.ID ---
Consultation
-
Date/Time Consultation Requested: 10/02/24 4:14
Date/Time Consultation Performed: 10/02/24 12:29
Requesting Provider: Dr Whiteside
Performing Provider: Dr Coyne
Reason for Consultation: metastatic colon ca, here with fever of unknown source
Chief Complaint / Past History
Chief Complaint
Back pain, fever
History of Present Illness
Mr Morales is a 43 year old male with history of metastatic colon cancer diagnosed 3 years ago, about 1 week ago he developd nocturnal fevers that then resolved. He discussed with his oncologist who instructed him to come to the ER if further
fevers. He reports he is on oxycodone for back pain but has developed a new L sided flank pain. No lower extremity weakness, bowel or bladder dysfunction. He chronicially has intermittent diarrhea and constipation. No cough, shortness of breath,
nausea, vomiting, abdominal pain, dysuria/urgency or frequency. No new rashes or joint pains.
In the ERhe was febrile to 101.1 orally, blood pressure was stable in the 120s/80s with a pulse of 78 and he was satting 98% on room air. WBC count 8, with a L shift absolute neutrophil count of greater than 6000, hemoglobin of 9.9, platelet count
of 148. ESR 87, Na 133, potassium 3.3, Cr 0.5, lactic acid 1.3, crp 83. His T. bili was similar to prior at 2.1, alk phos was also similar to prior 301. AST was slightly increased to 102. UA no pyuria, covid ag negative, CT c/a/p with contrast:
metastatic disease of the bone, liver; Prominent periaortic and mesenteric lymph nodes, nonspecific, and could be inflammatory or neoplastic, rectal wall thickening. CT c spine w/o IV contrast: no fracture, dislocation or mets. CXR: my read port in
place no infiltrates, blood cultures x2 in progress, influenza screen negative, patient is currently on cefepime.
Past History
Additional Past Medical History:
(Metastatic colon cancer) and HTN
Additional Past Surgical History:
tonsillectomy
port placement
Allergy History:
No Known Allergies Allergy (Verified 04/19/24 10:34)
Medications Reviewed: Yes
Social History
Tobacco: Non-Smoker
Alcohol: None
Drug: None
Family History
Family History: Not Pertinent
Review of Systems
Review of Systems
General: Fever and Chills
All systems: All other systems were reviewed and were negative
Vital Signs
Temp Pulse Resp BP Pulse Ox
98.2 F 95 18 125/82 100
10/02/24 08:18 10/02/24 08:18 10/02/24 08:18 10/02/24 08:18 10/02/24 08:18
Physical Exam
Physical Exam
Constitutional: No Acute Distress and Chronically Ill
Cardiovascular: Regular Rate and S1/S2; Negative Murmur or Rub
Pulmonary: Clear and Symmetric; Negative Wheezes, Rales or Rhonchi
Gastrointestinal: Soft, Non Tender, Non Distended and Normal Bowel Sounds
Skin: Warm and Dry; Negative Rash or Jaundice
Lab / Diagnostic Study Results
10/02/24 05:06
10/02/24 05:06
Abs Immat Gran (auto) 0.1 10^3/uL (0-0.05) H 10/01/24 21:50
Absolute Neuts (auto) 6.2 10^3/uL (1.4-6.5) 10/01/24 21:50
Absolute Lymphs (auto) 0.4 10^3/uL (1.2-3.4) L 10/01/24 21:50
Absolute Monos (auto) 1.3 10^3/uL (0.1-0.6) H 10/01/24 21:50
Absolute Basos (auto) 0.0 10^3/uL (0-0.2) 10/01/24 21:50
Immature Gran % 0.6 % (0-0.5) H 10/01/24 21:50
Neutrophils % 77.5 % (42.2-75.2) H 10/01/24 21:50
Lymphocytes % 5.1 % (20.5-51.1) L 10/01/24 21:50
Monocytes % 16.1 % (1.7-9.3) H 10/01/24 21:50
Eosinophils % 0.4 % (0-6) 10/01/24 21:50
Basophils % 0.3 % (0-2) 10/01/24 21:50
ESR 87 mm/hour (0-20) H 10/02/24 05:06
Lactic Acid 1.3 mmol/L (0.7-2.0) 10/01/24 21:50
C-Reactive Protein 83.30 mg/L (0.0-10.00) H 10/02/24 05:06
Microbiology Results
Micro:
10/01/24 21:50 Influenza Types A & B ([facility]) - Final
Nasal Swab Negative for Influenza A & B, NAAT
Negative results must be combined with clinical observations
and patient history.
Nucleic Acid Amplification test (NAAT)performed on the
[employer] NOW platform.
10/01/24 22:07 Blood Culture - Pending
Blood/Venous
10/01/24 21:50 Blood Culture - Pending
Blood/Venous
Assessment / Plan
Fevers
Extensive metastatic colon cancer
Port
- no focal symptoms
- blood cultures x2 are in progress
- patient was started on cefepime after the blood cultures were obtained
- CT of chest/abd/pelvis/neck notable for metastatic disease progressed, compression fractures, possible proctatitis
- new L flank pain may relate to compression fractures
- obtain MRSA screen
- can continue cefepime for now while following blood cultures
- add vancomycin pending blood culture results
--- NOTE | 2024-10-02 13:55 | W.PN.HOSP.TC ---
Today's Communication/Plan
-
Monitor vital signs see plan
Pain control
Follow fever curve
Continue antibiotics
ID evaluation
Nonbillable note
Assessment / Plan
Assessment / Plan
General: Well Developed, No Apparent Distress and Comfortable
HEENT: NormoCephalic, Anicteric and Moist mucous membranes
Respiratory: Clear
Cardiac: S1/S2 and Regular Rhythm
GI: Soft, Non Tender, Non Distended and Normal Bowel Sounds
Musculoskeletal: No Edema
Neuro: AO x 3 and Nonfocal/grossly intact
Psych: Calm
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 Small soft tissue component at T10. No neurological deficits.
- pain control with patients oral oxycodone in addition to IV pain medications for now
- neurochecks
Patient already follows up with oncology at [facility]. Also been getting radiation
Fever is intermittent and he had that a week ago and self resolved.
Unclear if further imaging is needed at this time, defer to ID evaluation
pain control
Fever - No neutropenia. No obvious source on history, exams, imaging or labs. ?Cholecystitis but benign exam and CT is equivocal (wall thickening but no stones noted)
- blood cultures sent
cefepime pending cultures
ID eval
- mrsa swab
HTN
- continue lisinopril
DVT PPX - lovenox sq
Code status - Full Code
Anticipated Discharge: 24 - 48 hours
Subjective/Interval History
-
Date of Service: October 02, 2024
has pain
Objective Data
-
Labs:
Laboratory Results
10/02/24
05:06
WBC 5.4
Hgb 9.2 L
Hct 27.2 L
Plt Count 128 L
Sodium 139
Potassium 3.8
Chloride 106
Carbon Dioxide 30
BUN 8 L
Creatinine 0.5 L
Glucose 85
Calcium 8.1 L
Vital Signs:
Vital Signs
Temp Pulse Resp BP Pulse Ox
98.2 F 95 18 125/82 100
10/02/24 08:18 10/02/24 08:18 10/02/24 08:18 10/02/24 08:18 10/02/24 08:18
I&O
10/01/24 10/02/24 10/03/24
06:59 06:59 06:59
Intake Total 450 / 450
Output Total 500 / 500
Balance -500 / -500 450 / 450
--- NOTE | 2024-10-02 14:07 | PHA.VAN.IN ---
Assessment
- Assessment
Renal Function: Appears similar to baseline (0.5)
Maximum Temperature: 101.1
Concomitant Antimicrobials: Cefepime
AUC Dosing Plan
- Dosing Variables
Dosing Weight (kg): 104.8
Dosing CrCl (ml/min): 125
Vd coefficient (L/kg): 0.7
- Empiric Dosing
Initial / Loading Dose: Vanco 2000mg loading pending administration ~1410 10/02/24
Maintenance Regimen: Vanco 1750mg Q12H Starting on 10/02/24 at 2200 then Q12H@0600,1800
Estimated AUC (mcg*h/mL): 477
Estimated Peak (mcg*h/mL): 32.8
Estimated Trough (mcg/ml): 10.5
Estimated Half Life (H): 6.4
- Monitoring
No levels ordered at this time: Consider in the next few days
Pharmacokinetics Vancomycin I
- -
Patient Age: 43
Patient Sex: Male
Vancomycin Day #: 1
Indication: Bacteremia
Requesting Provider: NICOLAS
Pertinent Antimicrobial Allergies:
No Known Drug Allergies
Height / Weight:
Height 6 ft 5 in
Actual Weight 104.8 kg
Pertinent Past Medical History: Colon Cancer
- Vital Signs / Lab Results
Temp Pulse Resp BP Pulse Ox
98.2 F 95 18 125/82 100
10/02/24 08:18 10/02/24 08:18 10/02/24 08:18 10/02/24 08:18 10/02/24 08:18
Lab Results - Hematology
10/01/24 10/02/24
21:50 05:06
WBC 8.0 5.4
Lab Results - Chemistry
10/01/24 10/02/24
21:50 05:06
BUN 8 L 8 L
Creatinine 0.6 L 0.5 L
Estimated Creat Clear > 125 > 125
Albumin 2.9 L
10/01/24
21:50
Lactic Acid 1.3
Lab Results - Urine
10/01/24
22:30
Urine Nitrite (Reflex) Negative
Leukocyte Esterase Rfl Negative
Microbiology Results
10/01/24 21:50 Influenza Types A & B ([facility]) - Final
Nasal Swab Negative for Influenza A & B, NAAT
Negative results must be combined with clinical observations
and patient history.
Nucleic Acid Amplification test (NAAT)performed on the
[employer] NOW platform.
[2024-10-02] MEDS: LOW STRENGTH ASPIRIN 81 MG PO (14:26)
[2024-10-02] MEDS: OCEAN, SALINE MIST 1 SPRAYS NASAL (14:26)
[2024-10-02] MEDS: VANCOCIN 540 MG IV (14:28)
[2024-10-02 15:52] VITALS: BP 121/59
[2024-10-02] MEDS: TYLENOL 650 MG PO (16:29)
[2024-10-02 16:31] VITALS: BP 138/94; BMI 26.6
[2024-10-02] MEDS: LOVENOX 40 MG SC (17:23)
[2024-10-02] MEDS: VANCOCIN 535 MG IV (22:37)
[2024-10-02 23:50] VITALS: BP 110/61
[2024-10-03] MEDS: ROXICODONE 5 MG PO ×5 (00:46→23:45)
[2024-10-03] MEDS: ZOFRAN 4 MG IV (00:59)
[2024-10-03] MEDS: MAXIPIME 1000 MG IV ×4 (00:59→20:05)
[2024-10-03] MEDS: STERILE WATER FOR INJECTION 10 ML IV ×4 (00:59→20:04)
[2024-10-03] MEDS: VANCOCIN 535 MG IV ×2 (05:55→17:45)
[2024-10-03 06:14] LABS: % Basophils 0.2 % (0-2); % Eosinophils 1.5 % (0-6); % Immature Granulocytes 0.5 % (0-0.5); % Lymphocytes 5.6 % (20.5-51.1); % Monocytes 12.2 % (1.7-9.3); Absolute Eosinophils 0.1 10^3/uL (0-0.7); Absolute Lymphocytes 0.3 10^3/uL (1.2-3.4); Absolute Monocytes 0.7 10^3/uL (0.1-0.6); Absolute Neutrophils 4.9 10^3/uL (1.4-6.5); Hematocrit 27.9 % (39.0-52.0); Hemoglobin 9.4 g/dL (13.0-18.0); Mean Corp Hgb Conc. 33.7 g/dL (33.0-37.0); Mean Corpuscular Hgb 32.4 pg (27.0-31.0); Mean Corpuscular Volume 96.2 fL (80.0-94.0); Mean Platelet Volume 9.9 fL (7.4-10.4); Nucleated Red Blood Cells % 0 % (-); Platelet Count 137 10^3/uL (130-400); Red Cell Dist. Width 15.1 % (11.5-14.5); White Blood Cell Count 6.1 10^3/uL (4.8-10.8)
[2024-10-03 06:42] LABS: ALT (SGPT) 28 U/L (0-50); AST (SGOT) 85 U/L (17-59); Albumin 2.8 g/dl (3.5-5.0); Alkaline Phosphatase 287 U/L (38-126); Blood Urea Nitrogen 6 mg/dl (9-20); Calcium 7.9 mg/dl (8.4-10.2); Carbon Dioxide 28 mmol/L (22-30); Chloride 106 mmol/L (98-107); Estimated Creatinine Clearance > 125 ml/min; Glucose 92 mg/dl (70-99); Potassium 4.1 mmol/L (3.5-5.1); Sodium 135 mmol/L (135-145); Total Protein 5.3 g/dl (6.3-8.2); eGFR > 60.00
[2024-10-03 07:49] VITALS: BP 125/84
[2024-10-03] MEDS: ZESTRIL 40 MG PO (08:22)
[2024-10-03] MEDS: LOW STRENGTH ASPIRIN 81 MG PO (08:25)
[2024-10-03] MEDS: DILAUDID 1 MG IV (08:36)
--- NOTE | 2024-10-03 10:29 | CM ---
Met with patient in room. He reports his is the insurance plan poon/sponsor/subscriber. They live in 2 level home with 2-3 steps in. UP full flight with landing to full bathrooms and bedrooms. There is 1/2 bath on licensed direct entry midwife. Patient may
want home care or outpatient PT at discharge.
[facility] and may have a [facility] contract if home care is needed. He does not have any DME. No history of home care or SNF.
PCP is a physician at [facility] in [place] per patient but he does not remember who he saw in group.
RX: Taras Dumont.
PLAN: home with outpatient follow up and maybe outpatient PT.
--- NOTE | 2024-10-03 10:43 | PHA.VAN.FU ---
Vancomycin Assessment / Plan
- Assessment
Renal Function: Stable
WBC's are: WNL
In the past 24 hrs, patient has been: Febrile (TMAX 103.2 F (ORAL))
Concomitant Antimicrobials: CEFEPIME
- Dosing Plan
Continue: VANCO 1750MG Q12H
- Monitoring Plan
Peak Level: 10/03 @2100
Trough Level: 10/04 @0530
- Follow Up
Pharmacy will continue to follow.
Vancomycin Follow UP
- -
Patient Age: 43
Patient Sex: Male
Vancomycin Day #: 2
Indication: Bacteremia
Requesting Provider: NICOLAS
Pertinent Antimicrobial Allergies:
No Known Drug Allergies
Height / Weight:
Height 6 ft 5 in
Actual Weight 101.65 kg
Pertinent Past Medical History: Colon Cancer
- Vital Signs / Lab Results
Temp Pulse Resp BP Pulse Ox
99.3 F 87 20 125/84 96
10/03/24 07:49 10/03/24 07:49 10/03/24 07:49 10/03/24 07:49 10/03/24 07:49
Lab Results - Hematology
10/01/24 10/02/24 10/03/24
21:50 05:06 06:04
WBC 8.0 5.4 6.1
Lab Results - Chemistry
10/01/24 10/02/24 10/03/24
21:50 05:06 06:04
BUN 8 L 8 L 6 L
Creatinine 0.6 L 0.5 L 0.6 L
Estimated Creat Clear > 125 > 125 > 125
Albumin 2.9 L 2.8 L
10/01/24
21:50
Lactic Acid 1.3
Microbiology Results
10/01/24 22:07 Blood Culture - Preliminary
Blood/Venous No Growth in 24 hours- Final report to follow
10/01/24 21:50 Blood Culture - Preliminary
Blood/Venous No Growth in 24 hours- Final report to follow
10/01/24 21:50 Influenza Types A & B ([facility]) - Final
Nasal Swab Negative for Influenza A & B, NAAT
Negative results must be combined with clinical observations
and patient history.
Nucleic Acid Amplification test (NAAT)performed on the
[employer] platform.
--- NOTE | 2024-10-03 11:35 | W.PN.HOSP.TC ---
Today's Communication/Plan
-
monitor vitals
see plan
pain control
follow fever curve
cw empiric abx
ID following
Assessment / Plan
Assessment / Plan
General: Well Developed, No Apparent Distress and Comfortable
HEENT: NormoCephalic, Anicteric and Moist mucous membranes
Respiratory: Clear
Cardiac: S1/S2 and Regular Rhythm
GI: Soft, Non Tender, Non Distended and Normal Bowel Sounds
Musculoskeletal: No Edema
Neuro: AO x 3 and Nonfocal/grossly intact
Psych: Calm
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 Small soft tissue component at T10. No neurological deficits.
- pain control with patients oral oxycodone in addition to IV pain medications for now
- neurochecks
Patient already follows up with oncology at [facility]. Also been getting radiation
Fever is intermittent and he had that a week ago and self resolved.
pain control
Fever - No neutropenia. No obvious source on history, exams, imaging or labs. ?Cholecystitis but benign exam and CT is equivocal (wall thickening but no stones noted)
- blood cultures NGTD
Continue with Vanco and cefepime per ID evaluation. Discussed with ID and will follow culture for another day. Monitor for fever curve.
ID following
- mrsa swab
could this likely be 2/2 malignancy. denies tick bite. denies sick contacts but is immunocompromised
HTN
- continue lisinopril
mild LFT elevation
monitor
no abdominal pain
DVT PPX - lovenox sq
Code status - Full Code
Anticipated Discharge: Within 24 hours
Subjective/Interval History
-
Date of Service: October 03, 2024
denies nausea
Objective Data
-
Labs:
Laboratory Results
10/03/24
06:04
WBC 6.1
Hgb 9.4 L
Hct 27.9 L
Plt Count 137
Sodium 135
Potassium 4.1
Chloride 106
Carbon Dioxide 28
BUN 6 L
Creatinine 0.6 L
Glucose 92
Calcium 7.9 L
Total Bilirubin 2.0 H
AST 85 H
ALT 28
Alkaline Phosphatase 287 H
Vital Signs:
Vital Signs
Temp Pulse Resp BP Pulse Ox
98.8 F 87 20 125/84 96
10/03/24 11:32 10/03/24 07:49 10/03/24 07:49 10/03/24 07:49 10/03/24 07:49
I&O
10/02/24 10/03/24 10/04/24
06:59 06:59 06:59
Intake Total 2480 / 2480
Output Total 500 / 500
Balance -500 / -500 2480 / 2480
--- NOTE | 2024-10-03 13:54 | W.PN.ID1 ---
Date of Service
Date of Service: October 03, 2024
Today's Communication
- continue cefepime for now while following blood cultures
- continue vancomycin pending blood culture results
- may consider discharge in the AM pending cultures
Assessment / Plan
Fevers
Extensive metastatic colon cancer
Port
- no focal symptoms
- blood cultures x2 are in progress
- patient was started on cefepime after the blood cultures were obtained
- CT of chest/abd/pelvis/neck notable for metastatic disease progressed, compression fractures, possible proctatitis
- new L flank pain may relate to compression fractures
- await MRSA screen
- continue cefepime for now while following blood cultures
- continue vancomycin pending blood culture results
- may consider discharge in the AM pending cultures
Chief Complaint
-: UTI
Subjective / Review of Systems
fevers ongoing as high as 103
bp stable
port remains functional
no new complaints
Vital Signs / Physical Exam
Vital Signs
Vital Signs
Temp Pulse Resp BP Pulse Ox
98.8 F 87 20 125/84 96
10/03/24 11:32 10/03/24 07:49 10/03/24 07:49 10/03/24 07:49 10/03/24 07:49
Physical Exam
Constitutional: No Acute Distress and Chronically Ill
Cardiovascular: Regular Rate and S1/S2; Negative Murmur or Rub
Pulmonary: Clear and Symmetric; Negative Wheezes or Rales
Gastrointestinal: Soft, Non Tender, Non Distended and Normal Bowel Sounds
Skin: Warm and Dry; Negative Rash or Jaundice
Lines: Port
Objective Data
Lab Data
Lab Results
10/03/24 06:04
10/03/24 06:04
ESR 87 mm/hour (0-20) H 10/02/24 05:06
Estimated Creat Clear > 125 ml/min 10/03/24 06:04
Lactic Acid 1.3 mmol/L (0.7-2.0) 10/01/24 21:50
Total Bilirubin 2.0 mg/dl (0.2-1.3) H 10/03/24 06:04
AST 85 U/L (17-59) H 10/03/24 06:04
ALT 28 U/L (0-50) 10/03/24 06:04
Alkaline Phosphatase 287 U/L (38-126) H 10/03/24 06:04
C-Reactive Protein 83.30 mg/L (0.0-10.00) H 10/02/24 05:06
Most recent labs reviewed.
Micro Results:
10/03/24 13:42 Nasal Screen MRSA (PCR) - Pending
Nose
10/03/24 12:33 Nasal Screen MRSA (PCR) - Final
Nose
10/01/24 22:07 Blood Culture - Preliminary
Blood/Venous No Growth in 24 hours- Final report to follow
10/01/24 21:50 Blood Culture - Preliminary
Blood/Venous No Growth in 24 hours- Final report to follow
10/01/24 21:50 Influenza Types A & B ([facility]) - Final
Nasal Swab Negative for Influenza A & B, NAAT
Negative results must be combined with clinical observations
and patient history.
Nucleic Acid Amplification test (NAAT)performed on the
[employer] platform.
[2024-10-03 16:12] VITALS: BP 113/63
[2024-10-03] MEDS: LOVENOX 40 MG SC (17:38)
[2024-10-03] MEDS: TYLENOL 650 MG PO (17:44)
[2024-10-03 23:11] VITALS: BP 104/68
[2024-10-03 23:32] LABS: Vancomycin Peak 21.8 ug/ml (18-26)
[2024-10-04] MEDS: MAXIPIME 1000 MG IV (02:38)
[2024-10-04] MEDS: STERILE WATER FOR INJECTION 10 ML IV (02:39)
[2024-10-04] MEDS: ROXICODONE 5 MG PO ×2 (05:37→11:51)
[2024-10-04 06:24] LABS: % Basophils 0.2 % (0-2); % Eosinophils 2.6 % (0-6); % Immature Granulocytes 0.7 % (0-0.5); % Lymphocytes 6.1 % (20.5-51.1); % Monocytes 14.6 % (1.7-9.3); % Neutrophils 75.8 % (42.2-75.2); Absolute Eosinophils 0.1 10^3/uL (0-0.7); Absolute Lymphocytes 0.3 10^3/uL (1.2-3.4); Absolute Monocytes 0.7 10^3/uL (0.1-0.6); Absolute Neutrophils 3.5 10^3/uL (1.4-6.5); Hematocrit 28.4 % (39.0-52.0); Hemoglobin 9.4 g/dL (13.0-18.0); Mean Corp Hgb Conc. 33.1 g/dL (33.0-37.0); Mean Corpuscular Volume 96.6 fL (80.0-94.0); Nucleated Red Blood Cells % 0 % (-); Platelet Count 139 10^3/uL (130-400); Red Blood Cell Count 2.94 10^6/uL (4.70-6.10); Red Cell Dist. Width 15.3 % (11.5-14.5); White Blood Cell Count 4.6 10^3/uL (4.8-10.8)
[2024-10-04 06:36] LABS: Vancomycin Trough 12.1 ug/ml (5-20)
[2024-10-04] MEDS: VANCOCIN 535 MG IV (06:36)
[2024-10-04 06:55] LABS: ALT (SGPT) 27 U/L (0-50); AST (SGOT) 75 U/L (17-59); Albumin 2.9 g/dl (3.5-5.0); Alkaline Phosphatase 303 U/L (38-126); Blood Urea Nitrogen 4 mg/dl (9-20); Calcium 8.3 mg/dl (8.4-10.2); Carbon Dioxide 27 mmol/L (22-30); Chloride 104 mmol/L (98-107); Estimated Creatinine Clearance > 125 ml/min; Glucose 121 mg/dl (70-99); Potassium 3.9 mmol/L (3.5-5.1); Sodium 136 mmol/L (135-145); Total Bilirubin 1.5 mg/dl (0.2-1.3); Total Protein 5.5 g/dl (6.3-8.2); eGFR > 60.00
[2024-10-04] MEDS: TYLENOL 650 MG PO (07:22)
[2024-10-04 07:30] VITALS: BP 131/90
--- NOTE | 2024-10-04 08:44 | W.PN.ID1 ---
Date of Service
Date of Service: October 04, 2024
Today's Communication
suspect tumor fever
- can take PRN or scheduled tylenol for fevers
- can discharge home without antibiotics, follow up with oncology
Assessment / Plan
Fevers
Extensive metastatic colon cancer
Port
- suspect tumor fevers
- no focal symptoms
- blood cultures x2 are in progress
- patient was started on cefepime after the blood cultures were obtained
- CT of chest/abd/pelvis/neck notable for metastatic disease progressed, compression fractures, possible proctitis however no corrolary symptoms
- new L flank pain may relate to compression fractures
- MRSA screen invalid x2, a repeat was already sent
- can take PRN or scheduled tylenol for fevers
- can discharge home without antibiotics, follow up with oncology
Chief Complaint
-: UTI
Subjective / Review of Systems
afebrile
bp stable
bowel movements at his baseline
Vital Signs / Physical Exam
Vital Signs
Vital Signs
Temp Pulse Resp BP Pulse Ox
101.2 F H 91 16 131/90 98
10/04/24 07:30 10/04/24 07:30 10/04/24 07:30 10/04/24 07:30 10/04/24 07:30
Physical Exam
Constitutional: No Acute Distress
Cardiovascular: Regular Rate
Pulmonary: Symmetric
Gastrointestinal: Non Distended
Skin: Warm and Dry; Negative Rash or Jaundice
Objective Data
Lab Data
Lab Results
10/04/24 05:46
10/04/24 05:46
ESR 87 mm/hour (0-20) H 10/02/24 05:06
Estimated Creat Clear > 125 ml/min 10/04/24 05:46
Lactic Acid 1.3 mmol/L (0.7-2.0) 10/01/24 21:50
Total Bilirubin 1.5 mg/dl (0.2-1.3) H 10/04/24 05:46
AST 75 U/L (17-59) H 10/04/24 05:46
ALT 27 U/L (0-50) 10/04/24 05:46
Alkaline Phosphatase 303 U/L (38-126) H 10/04/24 05:46
C-Reactive Protein 83.30 mg/L (0.0-10.00) H 10/02/24 05:06
Most recent labs reviewed.
Micro Results:
10/01/24 22:07 Blood Culture - Preliminary
Blood/Venous No Growth in 48 hours- Final report to follow
10/01/24 21:50 Blood Culture - Preliminary
Blood/Venous No Growth in 48 hours- Final report to follow
10/03/24 12:33 MRSA Screen - Pending
Nose
10/03/24 13:42 Nasal Screen MRSA (PCR) - Final
Nose
10/03/24 12:33 Nasal Screen MRSA (PCR) - Final
Nose
10/01/24 21:50 Influenza Types A & B ([facility]) - Final
Nasal Swab Negative for Influenza A & B, NAAT
Negative results must be combined with clinical observations
and patient history.
Nucleic Acid Amplification test (NAAT)performed on the
[employer] platform.
[2024-10-04] MEDS: STERILE WATER FOR INJECTION IV (08:52)
[2024-10-04] MEDS: MAXIPIME IV (08:52)
[2024-10-04] MEDS: ZESTRIL 40 MG PO (08:53)
[2024-10-04] MEDS: LOW STRENGTH ASPIRIN 81 MG PO (08:53)
--- NOTE | 2024-10-04 13:01 | CM ---
Patient seen bedside.
Patient denies home care needs.
patient will [facility]BER home.
Plan: home no needs.
--- NOTE | 2024-10-04 13:27 | W.PN.HOSP.TC ---
Today's Communication/Plan
-
dc
Assessment / Plan
Assessment / Plan
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 Small soft tissue component at T10. No neurological deficits.
Patient already follows up with oncology at [facility]. Also been getting radiation
CW pain control and follow with primary Onc at [facility]
Fever - No neutropenia.
- blood cultures NGTD
- mrsa swab
- No obvious source evident.
Discussed with ID today-strongly feel this is probably tumor fever and no indication of antibiotics and cleared for discharge from their standpoint.
HTN
- continue lisinopril
mild LFT elevation
monitor
no abdominal pain
DVT PPX - lovenox sq
Code status - Full Code
Left msg to Dr Villanueva to coordinate care on dc
DC home today
Total time of dc 32 min
Anticipated Discharge: Today
Subjective/Interval History
-
Date of Service: October 04, 2024
Ongoing fevers but no chills or sweats.
No GI , or respiratory symptoms.
Tolerating diet.
Patient has chronic back pain he had received radiation to the back in the recent past x 1. Denies any sciatic radicular pain no any bowel or bladder disturbances.
Objective Data
-
Labs:
Laboratory Results
10/04/24
05:46
WBC 4.6 L
Hgb 9.4 L
Hct 28.4 L
Plt Count 139
Sodium 136
Potassium 3.9
Chloride 104
Carbon Dioxide 27
BUN 4 L
Creatinine 0.5 L
Glucose 121 H
Calcium 8.3 L
Total Bilirubin 1.5 H
AST 75 H
ALT 27
Alkaline Phosphatase 303 H
Vital Signs:
Vital Signs
Temp Pulse Resp BP Pulse Ox
99.4 F 91 16 131/90 98
10/04/24 12:30 10/04/24 07:30 10/04/24 07:30 10/04/24 07:30 10/04/24 07:30
I&O
10/03/24 10/04/24 10/05/24
06:59 06:59 06:59
Intake Total 2479 / 2479
Balance 248 / 2479
Review of Systems
-
Constitutional: Reports Fever; Denies Chills
EENT: Denies Sore Throat
Respiratory: Denies Cough or Trouble Breathing
Cardiac: Denies Chest Pain
Abdomen/GI: Denies Abdominal Pain, Nausea, Vomiting or Diarrhea
Genitourinary: Denies Dysuria or Frequency
Neuro: Denies Dizzy
Physical Exam
-
General: No Apparent Distress
HEENT: Moist Mucous Membranes
Respiratory: Clear to Auscultation
Cardiac: Regular Rhythm and S1/S2
GI: Soft and Nontender
Neuro: AO x 3
Psych: Calm
Data Reviewed
-
Labs: Labs Reviewed by me
[2024-10-04 15:20] VITALS: BP 117/75
--- NOTE | 2024-10-05 07:42 | W.DCSUMMARY ---
Addendum entered and electronically signed by Fabio Robison MD 10/05/24 08:15:
Correction
date of discharge-10/04/2024
Original Note:
Discharge Summary
Discharge Data
Date of Admission: 10/02/24
Date of Discharge: 10/05/24
-
Pending Results: No
Hospital Course
Primary diagnosis:
Fevers-suspected tumor fever
Metastatic colon cancer
Secondary diagnosis:
Essential hypertension
Hospital course:
43-year-old gentleman with a metastatic colon cancer currently on treatments presented with fevers with no other associated symptoms. On further evaluation no focal infective source found. Evaluations including CT of the abdomen pelvis, chest
x-ray, blood cultures, flu and COVID were all nondiagnostic. Was evaluated by infectious disease team who felt the fever may be related to tumor which is metastatic. He was stable during the hospital stay without any antibiotics.
During evaluation of fevers he had a CT of the abdomen pelvis which showed pulmonary nodules compatible with pulmonary metastatic disease and bony metastatic disease with right anterior third rib lesion. There was also bony metastatic disease
involving the thoracic spine including evidence of epidural extension which is probably greatest at T10. He has chronic back pain from what looks like metastatic disease and nonnarcotics. He also says he had a radiation treatment to the back. He
had no sciatica pain nor lower extremity neurological symptoms so advised her to follow-up with primary oncologist at [facility]. I did speak with nurse practitioner with Dr. Escamilla and updated the CT findings and to consider
outpatient MRI of the spine.
Consultants on board:
ID-Kiarra Calhoun
Discharge Plan
-
Patient Disposition: Home (Routine Discharge)
Discharge Diagnosis/Procedures: Fever suspected tumor related to metastatic colon cancer
Diet: Regular
Activity: As tolerated
Driving Restrictions: As prior to admission
Bathing Restrictions: None
Referrals:
UNKNOWN - PT DOES,NOT KNOW [Family Provider] - in less than 1 week
Prescriptions:
Continued
lisinopril 40 mg Tablet
40 mg PO DAILY
oxycodone 5 mg tablet
20 mg PO Q8H
aspirin 81 mg Capsule
81 mg PO DAILY
Discharge Orders:
Discharge Patient (As Directed); Ordered 10/04/24
Ordered By: Fabio Robison
Discharge Date and Time
Discharge Date/Time: 10/04/24 16:17
Print Language: [id number]
== END 2024-10-04 16:17 | disposition home or self-care (01) | DRG 375 ==
LOC: 1 ACUTE 04:02
PROVIDERS: Internal Medicine; Physician Assistant; ADMITTING PHYSICIAN Internal Medicine; ATTENDING PHYSICIAN Internal Medicine; CONSULT PHYSICIAN Student in an Organized Health Care Education/Training Program; EMERGENCY PHYSICIAN Emergency Medicine
DX: C18.9 Malignant neoplasm of colon, unspecified (principal); C78.01 Secondary malignant neoplasm of right lung; C78.7 Secondary malignant neoplasm of liver and intrahepatic bile duct; C79.51 Secondary malignant neoplasm of bone; M84.58XA Pathological fracture in neoplastic disease, other specified site, initial encounter for fracture; C78.02 Secondary malignant neoplasm of left lung; G89.3 Neoplasm related pain (acute) (chronic); I10 Essential (primary) hypertension; R50.81 Fever presenting with conditions classified elsewhere; Z11.52 Encounter for screening for COVID-19; Z79.891 Long term (current) use of opiate analgesic
CPT/HCPCS: 71046; 71275; 72125; 74177; 80048; 80053; 80202; 81003; 83605; 83735; 85025; 85027; 85652; 86140; 87040; 87070; 87502; 87641; 87811; 96374; 96375; 99284; Q9967